=== PATIENT | male | born 1985 | race Caucasian/White ===

== ENCOUNTER → 2017-01-26 | Outpatient (CLI) | payer OTHER ==
--- NOTE | 2017-01-26 16:50 | CT ---
EXAMINATION TYPE: CT wrist LT wo con DATE OF EXAM: 01/26/2017 COMPARISON: NONE HISTORY: Left wrist pain CT DLP: 195 mGycm Automated exposure control for dose reduction was used. FINDINGS: The distal radius and ulna appear intact. Joint spaces are fairly normal. I see no focal bone destruc tion. There is a nondisplaced fracture of the waist of the scaphoid bone. The other carpal bones appear int act. Proximal metacarpals are intact. I see no pathologic fluid collection. IMPRESSION: NONDISPLACED SCAPHOID FRACTURE.
== END | disposition home or self-care (01) ==
LOC: RADCTMAIN 16:15
PROVIDERS: ATTEND Orthopaedic Surgery
DX: S62.002A Unspecified fracture of navicular [scaphoid] bone of left wrist, initial encounter for closed fracture (principal)